=== PATIENT | female | born 1980 | race Caucasian/White ===

== ENCOUNTER 2017-09-30 12:02 | Emergency (ER) | payer OTHER ==
[~2017-09-30] VITALS: Ht 152.4 cm; Wt 143.8 kg
[~2017-09-30 12:02] MED LIST: CEPHALEXIN500 M1 PO; CLEOCIN HCL150 MG PO; FERG PO; GLU5 PO; GNC NIACIN 250250 MG PO; LAC PO; METFORMIN HCL1000 MG PO; NORCO1 TA2 PO; SYN5 PO; VITC PO
[2017-09-30 12:17] VITALS: Ht 152.4 cm; Wt 143.8 kg
[2017-09-30 13:36] LABS: CARBON DIOXIDE 27.8 mmol/L (21-32); CHLORIDE SERUM 97 mmol/L (98-107); CREATININE SERUM 0.8 mg/dL (0.6-1.0); GFR1 > 60 mL/min; GLUCOSE SERUM 385 mg/dL (74-106); POTASSIUM SERUM 4.8 mmol/L (3.5-5.1); SODIUM SERUM 134 mmol/L (136-145)
[2017-09-30 14:15] VITALS: BP 129/76
== END 2017-09-30 14:15 | disposition home or self-care (01) ==
LOC: ED 12:02
PROVIDERS: Emergency Medicine
DX: L03.116 Cellulitis of left lower limb (principal); E11.9 Type 2 diabetes mellitus without complications; Z88.0 Allergy status to penicillin
CPT/HCPCS: 82962; J1815; J1885

== ENCOUNTER 2017-10-02 12:21 | Inpatient (IN) | payer OTHER ==
[~2017-10-02] VITALS: Ht 154.9 cm; Wt 142.4 kg
[2017-10-02 12:31] VITALS: Ht 154.9 cm; Wt 142.4 kg
[2017-10-02] MEDS ORDERED: GLIPIZIDE2.5 M1 PO (13:02)
[2017-10-02] MEDS ORDERED: BACTRIM DS1 TAB (13:03)
[2017-10-02] MEDS ORDERED: LEVAQUIN750 MG PO (13:03)
[2017-10-02] MEDS ORDERED: IBUPROFEN400 MG PO (13:04)
[2017-10-02 13:26] LABS: PLATELET COUNT 219 x10^3mcL (130-400)
[2017-10-02 14:05] LABS: CALCIUM 8.8 mg/dL (8.5-10.1); CARBON DIOXIDE 22.7 mmol/L (21-32); CHLORIDE SERUM 96 mmol/L (98-107); CREATININE SERUM 0.8 mg/dL (0.6-1.0); GFR1 > 60 mL/min; GLUCOSE SERUM 330 mg/dL (74-106); POTASSIUM SERUM 4.8 mmol/L (3.5-5.1); SODIUM SERUM 131 mmol/L (136-145)
[2017-10-02 14:11] LABS: ALKALINE PHOSPHATASE 156 U/L (46-116); ALT/SGPT 79 U/L (14-59); AST/SGOT 54 U/L (15-37); BILIRUBIN TOTAL 1.33 mg/dL (0.20-1.00); TOTAL PROTEIN, SERUM 8.2 g/dL (6.4-8.2)
[2017-10-02 14:13] LABS: ALBUMIN 2.6 g/dL (3.4-5.0)
[2017-10-02 14:20] LABS: T3 TOTAL 0.75 ng/mL
[2017-10-02 14:43] LABS: FREE T4 1.14 ng/dL (0.76-1.46); FREE THYROXINE INDEX 2.3 ug/dL (1.4-4.5); T4(THYROXINE) 6.7 ug/dL (4.7-13.3)
[2017-10-02 14:53] VITALS: BP 120/67
[2017-10-02 15:10] LABS: BAND NEUTROPHIL 3 % (0-10); BASOPHIL 0 % (0-2); MONOCYTE 6 % (0-7); SEGMENTED NEUTROPHILS 78 % (37-75)
[2017-10-02 15:13] LABS: rbc morphology (normal/abnorm) ABNORMAL (NORMAL); target cell (codocyte) 1+
[2017-10-02 15:19] LABS: MAGNESIUM 1.7 mg/dL (1.8-2.4); PHOSPHOROUS 2.8 mg/dL (2.5-4.9)
[2017-10-02 17:49] VITALS: BP 135/69
[2017-10-02 20:33] VITALS: BP 120/80
[2017-10-03 07:07] LABS: BASOPHIL % 0.1 % (0-2); PLATELET COUNT 245 x10^3mcL (130-400)
[2017-10-03 07:15] LABS: RED CELL DISTRIBUTION WIDTH 16.9 % (11.5-14.5)
[2017-10-03 07:16] LABS: rbc morphology (normal/abnorm) ABNORMAL (NORMAL)
[2017-10-03 07:21] LABS: CALCIUM 8.5 mg/dL (8.5-10.1); CARBON DIOXIDE 21.6 mmol/L (21-32); CHLORIDE SERUM 98 mmol/L (98-107); CREATININE SERUM 0.7 mg/dL (0.6-1.0); GFR1 > 60 mL/min; GLUCOSE SERUM 238 mg/dL (74-106); SODIUM SERUM 133 mmol/L (136-145)
[2017-10-03 07:55] VITALS: BP 122/63
[2017-10-03 13:00] VITALS: BP 133/80
[2017-10-03 16:50] VITALS: BP 119/60
[2017-10-03 17:23] LABS: UA SPECIFIC GRAVITY >=1.030 (1.005-1.035); microscopic required? YES; urine erythrocyte 3+ (NEGATIVE)
[2017-10-03 20:19] VITALS: BP 120/62
[2017-10-04 05:32] VITALS: BP 114/63
[2017-10-04 06:29] LABS: BASOPHIL % 0.1 % (0-2); PLATELET COUNT 285 x10^3mcL (130-400)
[2017-10-04 06:45] LABS: RED CELL DISTRIBUTION WIDTH 16.5 % (11.5-14.5)
[2017-10-04 06:46] LABS: rbc morphology (normal/abnorm) ABNORMAL (NORMAL)
[2017-10-04 06:53] LABS: CALCIUM 8.2 mg/dL (8.5-10.1); CARBON DIOXIDE 21.6 mmol/L (21-32); CHLORIDE SERUM 103 mmol/L (98-107); CREATININE SERUM 0.7 mg/dL (0.6-1.0); GFR1 > 60 mL/min; GLUCOSE SERUM 163 mg/dL (74-106); MAGNESIUM 2.2 mg/dL (1.8-2.4); PHOSPHOROUS 3.2 mg/dL (2.5-4.9); POTASSIUM SERUM 4.3 mmol/L (3.5-5.1); SODIUM SERUM 139 mmol/L (136-145)
[2017-10-04 08:30] VITALS: BP 1366/55
[2017-10-04 13:03] VITALS: BP 107/54
[2017-10-04 17:59] VITALS: BP 129/71
[2017-10-04 20:19] VITALS: BP 127/71
[2017-10-04 20:35] VITALS: BP 116/58
[2017-10-05 05:57] VITALS: BP 110/67
[2017-10-05 07:38] LABS: BASOPHIL % 0.4 % (0-2); PLATELET COUNT 296 x10^3mcL (130-400)
[2017-10-05 07:49] LABS: RED CELL DISTRIBUTION WIDTH 17.2 % (11.5-14.5)
[2017-10-05 07:50] LABS: CALCIUM 8.3 mg/dL (8.5-10.1); CARBON DIOXIDE 26.8 mmol/L (21-32); CHLORIDE SERUM 102 mmol/L (98-107); CREATININE SERUM 0.6 mg/dL (0.6-1.0); GFR1 > 60 mL/min; GLUCOSE SERUM 177 mg/dL (74-106); POTASSIUM SERUM 3.8 mmol/L (3.5-5.1); SODIUM SERUM 136 mmol/L (136-145)
[2017-10-05 08:41] VITALS: BP 120/71
[2017-10-05 12:25] VITALS: BP 132/69
[2017-10-05 13:32] VITALS: BP 120/71
[2017-10-05 16:38] VITALS: BP 115/64
[2017-10-05 21:06] VITALS: BP 115/66
[2017-10-06 05:03] VITALS: BP 140/63
[2017-10-06 06:49] LABS: BASOPHIL % 0.3 % (0-2); PLATELET COUNT 317 x10^3mcL (130-400)
[2017-10-06 06:53] LABS: RED CELL DISTRIBUTION WIDTH 16.6 % (11.5-14.5)
[2017-10-06 07:08] LABS: CALCIUM 8.5 mg/dL (8.5-10.1); CARBON DIOXIDE 26.9 mmol/L (21-32); CHLORIDE SERUM 101 mmol/L (98-107); CREATININE SERUM 0.6 mg/dL (0.6-1.0); GFR1 > 60 mL/min; GLUCOSE SERUM 161 mg/dL (74-106); POTASSIUM SERUM 3.4 mmol/L (3.5-5.1); SODIUM SERUM 138 mmol/L (136-145)
[2017-10-06 09:01] VITALS: BP 116/67
[2017-10-06 13:15] VITALS: BP 124/85
[2017-10-06] MEDS ORDERED: CLINDAMYCIN HC300 MG PO (14:14)
[2017-10-06] MEDS ORDERED: [UNRECOGNIZED DRUG - OTHER] TOP (14:14)
[2017-10-06] MEDS ORDERED: LAC PO (14:14)
[2017-10-06] MEDS ORDERED: TYL325 PO (14:16)
[2017-10-06 15:18] VITALS: BP 120/71
== END 2017-10-06 17:25 | disposition home or self-care (01) | DRG 853 ==
LOC: ED 12:21 → DU 12:50 → MU 12:50 → DU 14:30 → MU 10-05 12:46
PROVIDERS: Emergency Medicine; Family Medicine; Surgery
PROC: 0J9M0ZZ Drainage of Left Upper Leg Subcutaneous Tissue and Fascia, Open Approach (ICD-10-PCS; principal; 2017-10-03 09:00)
DX: A41.9 Sepsis, unspecified organism (principal); E43 Unspecified severe protein-calorie malnutrition; N17.0 Acute kidney failure with tubular necrosis; L03.116 Cellulitis of left lower limb; E87.1 Hypo-osmolality and hyponatremia; Z68.44 Body mass index [BMI] 60.0-69.9, adult; L02.214 Cutaneous abscess of groin; N39.0 Urinary tract infection, site not specified; E11.65 Type 2 diabetes mellitus with hyperglycemia; E03.9 Hypothyroidism, unspecified; E66.01 Morbid (severe) obesity due to excess calories; D64.9 Anemia, unspecified; Z88.0 Allergy status to penicillin; Z90.49 Acquired absence of other specified parts of digestive tract; Z83.3 Family history of diabetes mellitus; Z82.49 Family history of ischemic heart disease and other diseases of the circulatory system; Z91.14 Patient's other noncompliance with medication regimen
CPT/HCPCS: 82962; 83880; 84439; J1170; J1815; J1956; J2250; J2405; J2543; J3010; J3475; J3490; J7030; Q0092